=== PATIENT | male | born 2000 | race Caucasian/White ===

== ENCOUNTER 2020-07-27 19:11 | Emergency (ER) | payer OTHER ==
[~2020-07-27] VITALS: Ht 182.9 cm; Wt 70.9 kg
[2020-07-27 19:12] VITALS: BP 124/77
[2020-07-27] MEDS ORDERED: predniSONE 20 MG TAB PO ONE (20:15)
[2020-07-27] MEDS ORDERED: FAMOTIDINE 20 MG TAB PO ONE (20:15)
[2020-07-27] MEDS ORDERED: PRED20TA PO (20:19)
[2020-07-27] MEDS ORDERED: diphenhydrAMINE 50MG CAP PO ONE (20:30)
== END 2020-07-27 20:52 | disposition home or self-care (01) ==
LOC: M ED 19:11
DX: L50.0 Allergic urticaria (principal); F17.290 Nicotine dependence, other tobacco product, uncomplicated